=== PATIENT | female | born 1980 | race Caucasian/White ===

== ENCOUNTER 2016-07-01 17:07 | Emergency (ER) | payer OTHER ==
[~2016-07-01] VITALS: Ht 165.1 cm; Wt 116.5 kg
[~2016-07-01 17:07] MED LIST: MTR600X PO
[2016-07-01 17:15] VITALS: TEMP 36.8; Ht 165.1 cm; Wt 116.5 kg
--- NOTE | 2016-07-01 18:01 | DIAGNOSTIC IMAGING REPORT ---
RIGHT WRIST MIN 3 VIEWS ROUTINE CLINICAL HISTORY: R wrist pain Right pain. Trauma. COMPARISON: None. DISCUSSION: Mild degenerative change. No well-defined acute bony abnormality. Minimal soft tissue edema IMPRESSION: Minimal soft tissue edema. No acute abnormality. Electronically signed by: Ivan Castillo M.D. 07/01/2016 6:00 PM
[2016-07-01] MEDS ORDERED: TRAM-10 PO (18:13)
[2016-07-01] MEDS ORDERED: METH4PAK PO (18:13)
[2016-07-01] MEDS ORDERED: TRAMADOL HCL 50 MG HOME PACK PO ONE (18:15)
[2016-07-01 18:28] VITALS: BP 132/85; PULSE 76; O2SAT 99
--- NOTE | 2016-07-03 12:13 | EMERGENCY ROOM VISIT NOTE ---
ED Visit Note First contact with patient: 17:18 Chief Complaint: Right wrist pain. History of Present Illness: Ms. Iglesias is a 36-year-old white female who ambulates into the ED accompanied by a male friend complaining of right wrist pain over the distal radius. Patient reports approximately 2 weeks ago she started developing right wrist pain. She reports initially it was mild but has gradually increased in intensity. She denies any precipitating trauma. 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 Currently she describes her pain as a sharp sensation and occasional burning sensation. She rates her discomfort 8/10. The pain is nonradiating. Pain worsens with palpation, wrist flexion and ulnar and radial deviation. She has not identified any alleviating factors related to the pain. She does report she has been using [id number] medications without relief. Associated with her pain she feels that the anterior aspect of the wrist is swollen and has seen some mild erythema over the anterior wrist. Additionally she reports intermittently there is mild paresthesias in the thumb but reports they're self- limiting and self resolving. She denies neck pain, shoulder pain, elbow pain, forearm pain, hand weakness. She also denies any previous significant injuries or surgeries to this area Review of Systems: As noted above in history of present illness. Past Medical History: Hypertension, asthma, bronchitis, pneumonia, status post tubal ligation and uterine ablation. Current Medications: Patient denies. Allergies to Medications: Codeine. Social History: Patient is currently employed; she lives and feels safe in her home environment; she admits to tobacco use and denies alcohol use. Physical Examination: Vital Signs: Date Time Temp Pulse Resp B/P Pulse Ox O2 Delivery O2 Flow Rate FiO2 07/01/16 18:28 76 18 132/85 99 07/01/16 17:15 36.8 79 18 141/84 98 Room Air GENERAL: 36-year-old female in mild to moderate distress due to pain, nontoxic- appearing, afebrile and hemodynamically stable. NEUROLOGICAL: Awake, alert and oriented to person, place and time. Answering questions appropriately and following commands. Good hand eye coordination. No focal motor sensory deficits. SKIN: Warm, dry and pink. RIGHT UPPER EXTREMITY: No gross bony deformity. No tenderness in the shoulder, elbow or proximal forearm. Patient has moderate tenderness over the distal radius with mild swelling but no bony deformity or crepitus. She also has a small patch of erythema just medial to the location of her pain. This patch of erythema is not warm or hot to the touch when compared to the rest of the arm. She does have full range of motion in flexion, extension and radial and ulnar deviation of the wrist but these motions except for flexion. She also has full range of motion in pronation and supination of the forearm and also elicits pain. She has full range of motion in flexion, extension, abduction and abduction of the thumb with minimal pain. Positive Roney testing. Throughout the hand and fingers the skin was warm and pink and capillary refill is brisk. She was able to distinguish light sensations to all dermatomes. ED Course: Patient is assessed as noted above. Patient was given ice for pain and comfort; she refused pain medications. Right Wrist X-Rays: Were read by myself and the radiologist showing no acute fractures or dislocations. Radiologist does note mild degenerative changes and minimal soft tissue edema. Patient was placed in a thumb spica splint. Patient was educated about tonight's findings and instructed on her treatment plan; she verbalizes understanding and agreement with this plan. Clinical Impression: Right wrist pain. Tendinitis of the right thumb. Decision-Making: Initially my differential diagnosis I considered fracture, dislocation, tendinitis, ligamentous strain, gout and other causes. Disposition: Patient is discharged home in stable condition accompanied by ; prior to departure she was reassessed and subjectively reported she was feeling the same and rated her discomfort 7/10. Plan: Comfort measures were discussed with the patient including rest, ice, splint use and an alternating dose of Ultram and acetaminophen every 3 hours. Patient was encouraged to follow-up with security assurance specialist if no better in 7 -10 days. Patient was encouraged return ED for worsening/uncontrolled pain, uncontrolled swelling, worsening numbness/tingling or any new/concerning symptoms.
== END 2016-07-01 18:30 | disposition home or self-care (01) ==
LOC: C.EDB 17:07 → C.EDD 18:30
DX: M77.9 Enthesopathy, unspecified (principal); M25.531 Pain in right wrist; I10 Essential (primary) hypertension; J45.909 Unspecified asthma, uncomplicated; Z72.0 Tobacco use